=== PATIENT | female | born 1975 | race African-American/Black ===

== ENCOUNTER → 2020-02-24 11:53 | Outpatient (CLI) | payer OTHER, SELFPAY ==
--- NOTE | ~2020-02-24 | XR_ITS ---
Corrected Report Removed Fall one year ago. from the Indication. There was no fall per the patient. -BJO - XR wrist LT min 3V DATE: 02/24/2020 12:39 INDICATION: Left shoulder, elbow and wrist pain TECHNIQUE: 4 views COMPARISON: None FINDINGS: There is joint space narrowing at the radiocarpal joint and likely degenerative cyst of the lunate bone. No fracture, dislocation, periosteal reaction or bone destruction is detected. 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 ATRIC PSYCHIATRIST MTDMarino
--- NOTE | ~2020-02-24 | XR_ITS ---
Corrected Report Removed Fall one year ago. from the Indication. There was no fall per the patient. -BJO - XR elbow LT min 3V DATE: 02/24/2020 12:38 INDICATION: Left shoulder, elbow and wrist pain. TECHNIQUE: 4 views COMPARISON: None FINDINGS: No fracture or dislocation, periosteal reaction or bone destruction or joint effusion is detected. IMPRESSION: No significant abnormality Reviewed, dictated and finalized at location A. MOTIVE DESIGN LAYOUT DRAFTER MTDD IMPRESSION: No significant abnormality
--- NOTE | ~2020-02-24 | XR_ITS ---
XR shoulder LT min 2V DATE: 02/24/2020 12:38 INDICATION: Left shoulder, MLO and wrist pain for one year TECHNIQUE: 4 views COMPARISON: None FINDINGS: There is an approximately 6 mm lucency overlying the glenoid process of the scapula, possib ly a degenerative cyst. Consider CT or MRI imaging of the left shoulder for further evaluation as cli nically indicated. There is mild osteoarthritic change at left glenohumeral joint, including slight spurring of the left humeral head. There is mild degenerative spurring at the left acromioclavicular joint. No fracture, dislocation, periosteal reaction or bone destruction is detected. IMPRESSION: Probable approximately 6 mm cyst of the glenoid process of the scapula Mild osteoarthritis at the left glenohumeral joint Mild degenerative spurring at the left acromioclavicular joint. Reviewed, dictated and finalized at location A. TUTOR IMPRESSION: Probable approximately 6 mm cyst of the glenoid process of the scap luiz Mild osteoarthritis at the left glenohumeral joint Mild degenerative spurring at the left acromioclavicular joint.
== END ==
PROVIDERS: PCP Family Medicine; Visit Provider Family Medicine
DX: M25.522 Pain in left elbow (principal); M19.032 Primary osteoarthritis, left wrist; M19.012 Primary osteoarthritis, left shoulder
CPT/HCPCS: 73030; 73080; 73110

== ENCOUNTER 2020-03-26 09:58 | Outpatient (CLI) | payer OTHER, SELFPAY ==
--- NOTE | ~2020-03-26 | MR_ITS ---
EXAMINATION: MR shoulder LT wo con DATE: 03/26/2020 10:58 INDICATION: Lytic lesion of the scapula. TECHNIQUE: Magnetic resonance imaging (MRI) of the left shoulder was performed without intravenous co ntrast. Sequences included axial PD-weighted FS FSE, coronal oblique PD-weighted FS FSE and T2-weight ed FS FSE, and sagittal oblique T2-weighted FS FSE and T1-weighted FSE. COMPARISON: Left shoulder radiographs 02/24/2020 FINDINGS: Coracoacromial arch: The acromion undersurface is flat in morphology (type I). There is mild acromioclavicular joint osteo arthritis. There is mild subacromial/subdeltoid bursitis. Rotator cuff: There is mild supraspinatus and infraspinatus tendinopathy. Teres minor tendon is normal. There is mi ld subscapularis tendinopathy. No tear. There is no asymmetric fatty atrophy of the rotator cuff musc le bellies. Biceps tendon and glenoid labrum: Biceps tendon is in bicipital groove. There is a longitudinal split tear of biceps tendon. There is a tear of the posterior superior labrum from 8:00 to 12:00 (SLAP tear). Fluid: There is a moderate-sized glenohumeral joint effusion. Bones/cartilage: There is shallow partial-thickness cartilage loss of humeral head. There is full-thickness cartilage loss of central and posterior glenoid with subchondral cysts correlating with the radiographic abnorm ality. There is subchondral edema-like marrow signal intensity in glenoid. Osteophytes are noted of t he humeral head and glenoid. IMPRESSION: 1. 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 A subchondral cyst of the glenoid jagdish elates with the radiographic abnormality. 2. SLAP tear. 3. Moderate-sized glenohumeral joint effusion. 4. Longitudinal split tear of biceps tendon. 5. Mild acromioclavicular joint osteoarthritis. 6. Mild subacromial/subdeltoid bursitis. Reviewed, dictated and finalized at location A. ERCIAL LITIGATION ATTORNEY IMPRESSION: 1. 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 A subchondral cy st of the glenoid correlates with the radiographic abnormality. 2. SLAP tear. 3. Moderate-sized glenohumeral joint effusion. 4. Longitudinal split tear of biceps tendon. 5. Mild acromioclavicular joint osteoarthritis. 6. Mild subacromial/subdeltoid bursitis.
== END 2020-03-26 09:59 | disposition home or self-care (01) ==
PROVIDERS: PCP Family Medicine; Visit Provider Family Medicine
DX: S43.432D Superior glenoid labrum lesion of left shoulder, subsequent encounter (principal); X58.XXXD Exposure to other specified factors, subsequent encounter; M19.012 Primary osteoarthritis, left shoulder; M75.52 Bursitis of left shoulder; M25.412 Effusion, left shoulder
CPT/HCPCS: 73221